=== PATIENT | female | born 1940 | race Caucasian/White ===

== ENCOUNTER 2020-11-06 13:09 | Emergency (ER) | payer MEDICARE ==
[~2020-11-06 13:09] MED LIST: ALL DAY ALLERGY10 M2 PO; ASPIRIN EC81 MG PO; ATORVASTATIN CA20 MG PO; CLARITIN 10MG T10 MG PO; CLOPIDOGREL75 MG PO; COD LIVER OIL1 EACH PO; CYMBALTA30 MG PO; DILTIAZEM 24HR180 M1 PO; DULOXETINE HCL30 MG PO; ELIQUIS2.5 MG PO; FLONASE 0.05% N16 GM; GABAPENTIN100 MG PO; LACTULOSE10 GM/151 PO; LACTULOSE10 GM/152 PO; LIDOCAINE PAIN1 EACH TP; LINZESS145 MCG PO; MEGACE 400400 MG/10 PO; MEGACE400 MG/10 PO; NEURONTIN 100100 MG PO; NORCO 5-325 TA1 EACH PO; OMNICEF 300 MG300 MG PO; OSTEO BI-FLEX1 EAC1 PO; PAIN RELIEVER650 MG PO; PLAQUENIL 200200 MG PO; RESTASIS 0.05%1 EACH OD; THERA-GESIC PLU85 GM TP; TRAMADOL-ACETA1 EACH PO; VITAMIN A8000 UNIT PO; VITAMIN D310 MC2 PO; VIVELLE-DOT1 EAC1 TD
[2020-11-06 15:19] LABS: HEMOGLOBIN 13.2 gm/dl (12.3-15.3); RED BLOOD COUNT 4.1 M/UL (4.00-5.10); WHITE BLOOD COUNT 7.2 K/UL (4.5-11.0)
[2020-11-06 15:45] LABS: BUN/CREATININE RATIO 66 (0-10)
== END 2020-11-06 17:12 | disposition home or self-care (01) ==
LOC: ER1 13:09
PROVIDERS: Emergency Medicine
DX: M47.816 Spondylosis without myelopathy or radiculopathy, lumbar region (principal); M79.605 Pain in left leg; M79.604 Pain in right leg; I10 Essential (primary) hypertension; Z88.0 Allergy status to penicillin; Z79.01 Long term (current) use of anticoagulants
CPT/HCPCS: 72131; 80053; 85025; 93970; 99284

== ENCOUNTER → 2021-01-24 | Outpatient (CLI) | payer MEDICARE ==
[~2021-01-24] MED LIST changes: +BACTRIM DS TAB1 EACH PO; +MIRALAX17 GM PO
== END ==
LOC: EMI 10:19
DX: M54.16 Radiculopathy, lumbar region (principal); M51.36 Other intervertebral disc degeneration, lumbar region
CPT/HCPCS: 72148

== ENCOUNTER 2021-02-01 15:45 | Emergency (ER) | payer MEDICARE ==
[~2021-02-01 15:45] MED LIST changes: -BACTRIM DS TAB1 EACH PO; -MIRALAX17 GM PO
[2021-02-01 18:28] LABS: HEMOGLOBIN 13.3 gm/dl (12.3-15.3); RED BLOOD COUNT 4.1 M/UL (4.00-5.10); WHITE BLOOD COUNT 5.6 K/UL (4.5-11.0)
[2021-02-01 18:40] LABS: BUN/CREATININE RATIO 50 (0-10)
== END 2021-02-01 20:20 | disposition home or self-care (01) ==
LOC: ER1 15:45
PROVIDERS: Preventive Medicine Occupational Medicine
DX: G89.29 Other chronic pain (principal); M54.9 Dorsalgia, unspecified; M79.606 Pain in leg, unspecified
CPT/HCPCS: 70450; 80053; 81001; 83690; 85025; 85652; 86140; 87086; 93005; 99284; J7030

== ENCOUNTER 2021-04-27 10:32 | Emergency (ER) | payer MEDICARE ==
[2021-04-27 13:53] LABS: HEMOGLOBIN 14.2 gm/dl (12.3-15.3); RED BLOOD COUNT 4.35 M/UL (4.00-5.10); WHITE BLOOD COUNT 6.7 K/UL (4.5-11.0)
[2021-04-27 14:12] LABS: BUN/CREATININE RATIO 68 (0-10)
[2021-04-27] MEDS ORDERED: BACTRIM DS TAB1 EACH PO (14:58)
[2021-04-27] MEDS ORDERED: MIRALAX17 GM PO (14:58)
== END 2021-04-27 15:30 | disposition home or self-care (01) ==
LOC: ER1 10:32
PROVIDERS: Physician Assistant Medical
DX: M79.651 Pain in right thigh (principal); M79.652 Pain in left thigh; M25.561 Pain in right knee; M25.562 Pain in left knee; G89.29 Other chronic pain; I10 Essential (primary) hypertension; N39.0 Urinary tract infection, site not specified; K59.00 Constipation, unspecified; Z86.73 Personal history of transient ischemic attack (TIA), and cerebral infarction without residual deficits; Z88.0 Allergy status to penicillin; Z79.899 Other long term (current) drug therapy
CPT/HCPCS: 74018; 80053; 81001; 85025; 99283

== ENCOUNTER → 2021-06-14 | Outpatient (CLI) | payer MEDICARE ==
[~2021-06-14] MED LIST changes: +BACTRIM DS TAB1 EACH PO; +MIRALAX17 GM PO
== END ==
LOC: CT 06-13 08:30
DX: M79.669 Pain in unspecified lower leg (principal); I73.00 Raynaud's syndrome without gangrene
CPT/HCPCS: 36415; 75635; 82565; Q9967

== ENCOUNTER → 2021-07-19 | Outpatient (CLI) | payer MEDICARE | LOC: KOH-I 11:32 | DX: G44.52 New daily persistent headache (NDPH) (principal); M51.36 Other intervertebral disc degeneration, lumbar region; M48.061 Spinal stenosis, lumbar region without neurogenic claudication; M41.9 Scoliosis, unspecified | CPT/HCPCS: 70551; 72148 ==

== ENCOUNTER 2021-08-04 09:46 | Emergency (ER) | payer MEDICARE ==
[2021-08-04 12:05] LABS: HEMOGLOBIN 14.2 gm/dl (12.3-15.3); RED BLOOD COUNT 4.34 M/UL (4.00-5.10); WHITE BLOOD COUNT 6.8 K/UL (4.5-11.0)
[2021-08-04 12:30] LABS: BUN/CREATININE RATIO 62 (0-10)
[2021-08-04] MEDS ORDERED: CIPRO250 MG PO (14:55)
[2021-08-04] MEDS ORDERED: METRONIDAZOLE500 MG PO (14:55)
[2021-08-04] MEDS ORDERED: ONDANSETRON ODT4 MG SL (14:55)
== END 2021-08-04 15:10 | disposition home or self-care (01) ==
LOC: ER1 09:46
PROVIDERS: Physician Assistant
DX: M70.71 Other bursitis of hip, right hip (principal); G89.29 Other chronic pain; D19.7 Benign neoplasm of mesothelial tissue of other sites; E78.5 Hyperlipidemia, unspecified; Z88.0 Allergy status to penicillin; Z91.048 Other nonmedicinal substance allergy status; Z79.899 Other long term (current) drug therapy
CPT/HCPCS: 71045; 80053; 81001; 82550; 82553; 83690; 83874; 84439; 84443; 84484; 85025; 93005; 99284; J2405; Q9967

== ENCOUNTER 2021-08-27 12:50 | Emergency (ER) | payer MEDICARE ==
[~2021-08-27 12:50] MED LIST changes: +CIPRO250 MG PO; +METRONIDAZOLE500 MG PO; +ONDANSETRON ODT4 MG SL
[2021-08-27 13:44] LABS: HEMOGLOBIN 13.4 gm/dl (12.3-15.3); RED BLOOD COUNT 4.1 M/UL (4.00-5.10); WHITE BLOOD COUNT 11.4 K/UL (4.5-11.0)
[2021-08-27 14:12] LABS: BUN/CREATININE RATIO 98 (0-10)
[2021-08-27] MEDS ORDERED: MIRALAX17 GM PO ×2 (17:48→17:56)
[2021-08-27] MEDS ORDERED: COLACE 100MG C100 MG PO ×2 (17:48→17:56)
== END 2021-08-27 18:10 | disposition home or self-care (01) ==
LOC: ER1 12:50
PROVIDERS: Nurse Practitioner
DX: K59.00 Constipation, unspecified (principal); E86.0 Dehydration; Z20.822 Contact with and (suspected) exposure to COVID-19; Z86.73 Personal history of transient ischemic attack (TIA), and cerebral infarction without residual deficits; I10 Essential (primary) hypertension; Z88.0 Allergy status to penicillin
CPT/HCPCS: 51701; 71045; 80053; 81001; 82550; 82553; 83605; 83874; 84484; 85025; 85610; 87040; 87086; 93005; 96374; 99285; J0692; J7030; Q9967; U0002

== ENCOUNTER 2021-10-02 08:49 | Emergency (ER) | payer MEDICARE ==
[~2021-10-02 08:49] MED LIST changes: +COLACE 100MG C100 MG PO
[2021-10-02 09:44] LABS: HEMOGLOBIN 13.5 gm/dl (12.3-15.3); RED BLOOD COUNT 4.14 M/UL (4.00-5.10); WHITE BLOOD COUNT 6.3 K/UL (4.5-11.0)
[2021-10-02 10:34] LABS: BUN/CREATININE RATIO 94 (0-10)
== END 2021-10-02 13:58 | disposition home or self-care (01) ==
LOC: ER1 08:49
PROVIDERS: Physician Assistant
DX: G91.9 Hydrocephalus, unspecified (principal); M79.605 Pain in left leg; M79.604 Pain in right leg; E86.0 Dehydration; Z20.822 Contact with and (suspected) exposure to COVID-19; G89.29 Other chronic pain; R00.0 Tachycardia, unspecified; I10 Essential (primary) hypertension; Z88.0 Allergy status to penicillin
CPT/HCPCS: 70450; 71045; 80053; 81001; 82550; 82553; 83605; 83874; 84484; 85025; 87040; 87086; 93005; 99284; J7030; U0002

== ENCOUNTER → 2021-11-25 | Outpatient (CLI) | payer MEDICARE | LOC: EXRD 11-20 10:30 | DX: M81.0 Age-related osteoporosis without current pathological fracture (principal) | CPT/HCPCS: 77080 ==

== ENCOUNTER 2022-01-21 12:17 | Emergency (ER) | payer MEDICARE ==
[2022-01-21 13:54] LABS: HEMOGLOBIN 13.3 gm/dl (12.3-15.3); RED BLOOD COUNT 4.04 M/UL (4.00-5.10); WHITE BLOOD COUNT 8.1 K/UL (4.5-11.0)
[2022-01-21 14:20] LABS: BUN/CREATININE RATIO 102 (0-10)
== END 2022-01-21 16:30 | disposition home or self-care (01) ==
LOC: ER1 12:17
PROVIDERS: Physician Assistant
DX: T54.91XA Toxic effect of unspecified corrosive substance, accidental (unintentional), initial encounter (principal); G91.9 Hydrocephalus, unspecified; F03.90 Unspecified dementia, unspecified severity, without behavioral disturbance, psychotic disturbance, mood disturbance, and anxiety
CPT/HCPCS: 70450; 71045; 80053; 81001; 82550; 82553; 83605; 84484; 85025; 87086; 93005; 99284

== ENCOUNTER 2022-02-11 14:58 | Inpatient (IN) | payer MEDICARE ==
[~2022-02-11] VITALS: Ht 157.5 cm; Wt 34.5 kg
[~2022-02-11 14:58] MED LIST changes: +BUTRANS1 EAC3 TD; +DULOXETINE HCL20 MG PO; -DULOXETINE HCL30 MG PO; +DULOXETINE HCL60 MG PO; +LYRICA50 MG PO
[2022-02-11 15:40] LABS: HEMOGLOBIN 12.9 gm/dl (12.3-15.3); RED BLOOD COUNT 3.77 M/UL (4.00-5.10); WHITE BLOOD COUNT 11.5 K/UL (4.5-11.0)
[2022-02-11 16:02] LABS: BUN/CREATININE RATIO 100 (0-10)
[2022-02-12 04:49] LABS: HEMOGLOBIN 12.8 gm/dl (12.3-15.3); RED BLOOD COUNT 3.75 M/UL (4.00-5.10)
[2022-02-12 04:56] LABS: WHITE BLOOD COUNT 17.6 K/UL (4.5-11.0)
[2022-02-12 05:27] LABS: BUN/CREATININE RATIO 52 (0-10)
[2022-02-12] MEDS ORDERED: DILTIAZEM 24HR180 M1 PO (10:31)
[2022-02-12] MEDS ORDERED: CELECOXIB100 MG PO (12:45)
[2022-02-12] MEDS ORDERED: PROZAC10 MG PO (12:46)
[2022-02-12] MEDS ORDERED: HYDROCODON-ACE1 EAC4 PO (12:47)
[2022-02-12] MEDS ORDERED: ROPINIROLE HCL0.5 MG PO (12:48)
[2022-02-12] MEDS ORDERED: CILOSTAZOL50 MG PO (12:49)
[2022-02-12] MEDS ORDERED: LIPITOR40 MG PO (19:54)
[2022-02-12] MEDS ORDERED: TYLENOL 8 HOUR650 MG PO (19:57)
[2022-02-12] MEDS ORDERED: ALEVE220 MG PO (19:58)
[2022-02-13 03:06] LABS: HEMOGLOBIN 12.3 gm/dl (12.3-15.3); RED BLOOD COUNT 3.62 M/UL (4.00-5.10); WHITE BLOOD COUNT 15.1 K/UL (4.5-11.0)
[2022-02-13 04:26] LABS: BUN/CREATININE RATIO 43 (0-10)
[2022-02-14 02:50] LABS: RED BLOOD COUNT 3.85 M/UL (4.00-5.10)
[2022-02-14 03:01] LABS: BUN/CREATININE RATIO 33 (0-10)
[2022-02-14 03:32] LABS: WHITE BLOOD COUNT 9.5 K/UL (4.5-11.0)
[2022-02-15] MEDS ORDERED: CEFUROXIME250 MG PO (09:16)
[2022-02-15] MEDS ORDERED: POLYETHYLENE GL17 GM PO (11:10)
[2022-02-15] MEDS ORDERED: STIMULANT LAXA1 EACH PO (11:10)
--- NOTE | 2022-02-15 11:18 | NUR ---
RN SPOKE WITH HEAT T[employer]ATING FURNACE TENDER YAZMIN Rice ABOUT HOME HEALTH FOR THIS PATIENT. YAZMIN STATED HOME HEALTH WAS SET UP WITH [facility] AND STATED NUMBER FOR REPORT WAS [phone].
--- NOTE | 2022-02-15 11:51 | NUR ---
RN ATTEMPTED TO CALL A HOME HEALTH ABOUT PATIENT'S REFERRAL TO HOME HEALTH WITH NO SUCCESS. CASE MANAGEMENT NOTE SAID INFORMATION WAS SENT. FAMILY INSTRUCTED TO CALL HOSPITAL IF HOME HEALTH SETUP ISSUES [place].
== END 2022-02-15 12:13 | disposition home health service (06) | DRG 689 ==
LOC: ER1 14:58 → M/S 18:30 → CDU 18:30 → M/S 02-12 08:55
PROVIDERS: Emergency Medicine; Physician Assistant; ADMIT Internal Medicine Infectious Disease
DX: N30.00 Acute cystitis without hematuria (principal); G93.41 Metabolic encephalopathy; F11.20 Opioid dependence, uncomplicated; Z68.1 Body mass index [BMI] 19.9 or less, adult; N17.9 Acute kidney failure, unspecified; E44.0 Moderate protein-calorie malnutrition; E86.0 Dehydration; M54.9 Dorsalgia, unspecified; K81.9 Cholecystitis, unspecified; G89.29 Other chronic pain; K59.00 Constipation, unspecified; M41.9 Scoliosis, unspecified; I10 Essential (primary) hypertension; Z20.822 Contact with and (suspected) exposure to COVID-19; Z96.649 Presence of unspecified artificial hip joint; M51.34 Other intervertebral disc degeneration, thoracic region; Z87.442 Personal history of urinary calculi; Z86.73 Personal history of transient ischemic attack (TIA), and cerebral infarction without residual deficits; Z98.890 Other specified postprocedural states; Z90.710 Acquired absence of both cervix and uterus; Z82.49 Family history of ischemic heart disease and other diseases of the circulatory system; Z82.3 Family history of stroke; Z91.040 Latex allergy status; Z88.0 Allergy status to penicillin; Z79.899 Other long term (current) drug therapy
CPT/HCPCS: 36415; 80048; 80053; 81001; 82550; 82553; 83690; 83735; 84484; 85025; 87086; 93005; 96374; 96375; 97110-GP-CQ; 97161; 97166; 99285; C9113; G0378; J1335; J2405; Q9967; U0002

== ENCOUNTER 2022-02-20 10:22 | Emergency (ER) | payer MEDICARE ==
[~2022-02-20 10:22] MED LIST changes: +ALEVE220 MG PO; +CEFUROXIME250 MG PO; +CELECOXIB100 MG PO; +CILOSTAZOL50 MG PO; +HYDROCODON-ACE1 EAC4 PO; +LIPITOR40 MG PO; +POLYETHYLENE GL17 GM PO; +PROZAC10 MG PO; +ROPINIROLE HCL0.5 MG PO; +STIMULANT LAXA1 EACH PO; +TYLENOL 8 HOUR650 MG PO
[2022-02-20 11:02] LABS: HEMOGLOBIN 13.1 gm/dl (12.3-15.3); RED BLOOD COUNT 3.9 M/UL (4.00-5.10); WHITE BLOOD COUNT 6.3 K/UL (4.5-11.0)
[2022-02-20 11:25] LABS: BUN/CREATININE RATIO 86 (0-10)
== END 2022-02-20 14:50 | disposition home or self-care (01) ==
LOC: ER1 10:22
PROVIDERS: Student in an Organized Health Care Education/Training Program
DX: G89.29 Other chronic pain (principal); M79.605 Pain in left leg; I10 Essential (primary) hypertension; Z88.0 Allergy status to penicillin
CPT/HCPCS: 80053; 82550; 82553; 83605; 84484; 85025; 96374; 99283; J1885; J7030

== ENCOUNTER → 2022-03-05 | Outpatient (CLI) | payer MEDICARE ==
[~2022-03-05] VITALS: Ht 154.9 cm; Wt 34.9 kg
== END ==
LOC: OPSV 15:00
DX: M81.0 Age-related osteoporosis without current pathological fracture (principal)
CPT/HCPCS: 96372

== ENCOUNTER 2022-03-23 08:08 | Emergency (ER) | payer MEDICARE ==
[2022-03-23 09:39] LABS: HEMOGLOBIN 12.4 gm/dl (12.3-15.3); RED BLOOD COUNT 3.79 M/UL (4.00-5.10); WHITE BLOOD COUNT 6.2 K/UL (4.5-11.0)
[2022-03-23 10:02] LABS: BUN/CREATININE RATIO 73 (0-10)
== END 2022-03-23 12:30 | disposition home or self-care (01) ==
LOC: ER1 08:08
PROVIDERS: Physician Assistant
DX: M25.551 Pain in right hip (principal); M25.552 Pain in left hip; G89.29 Other chronic pain; Z96.641 Presence of right artificial hip joint; Z88.0 Allergy status to penicillin
CPT/HCPCS: 73522; 80053; 83605; 85025; 85652; 86140; 99284

== ENCOUNTER 2022-04-19 07:06 | Observation (INO) | payer MEDICARE ==
[~2022-04-19] VITALS: Ht 157.5 cm; Wt 36.3 kg
[~2022-04-19 07:06] MED LIST changes: +DILTIAZEM 24HR240 M1 PO; -PROZAC10 MG PO; +PROZAC20 MG PO
[2022-04-19 08:07] LABS: HEMOGLOBIN 13.4 gm/dl (12.3-15.3); RED BLOOD COUNT 4.13 M/UL (4.00-5.10); WHITE BLOOD COUNT 10.2 K/UL (4.5-11.0)
[2022-04-19 08:31] LABS: BUN/CREATININE RATIO 83 (0-10)
[2022-04-19] MEDS ORDERED: BUSPIRONE HCL5 MG PO (15:22)
[2022-04-19] MEDS ORDERED: PERCOCET 5-3251 EACH PO (15:23)
[2022-04-20 03:12] LABS: HEMOGLOBIN 14.2 gm/dl (12.3-15.3); RED BLOOD COUNT 4.33 M/UL (4.00-5.10); WHITE BLOOD COUNT 8.8 K/UL (4.5-11.0)
[2022-04-20 03:36] LABS: BUN/CREATININE RATIO 47 (0-10)
[2022-04-21 03:33] LABS: HEMOGLOBIN 13.5 gm/dl (12.3-15.3); RED BLOOD COUNT 4.31 M/UL (4.00-5.10); WHITE BLOOD COUNT 7.1 K/UL (4.5-11.0)
[2022-04-21 03:47] LABS: BUN/CREATININE RATIO 59 (0-10)
[2022-04-22 04:23] LABS: HEMOGLOBIN 12.3 gm/dl (12.3-15.3); WHITE BLOOD COUNT 7.1 K/UL (4.5-11.0)
[2022-04-22 04:27] LABS: RED BLOOD COUNT 3.78 M/UL (4.00-5.10)
[2022-04-22 04:49] LABS: BUN/CREATININE RATIO 44 (0-10)
[2022-04-22] MEDS ORDERED: CEFUROXIME250 MG PO (10:39)
== END 2022-04-22 13:56 | disposition home health service (06) ==
LOC: ER1 07:06 → M/S 14:52 → CDU 14:52 → M/S 14:52
PROVIDERS: Nurse Practitioner; Physician Assistant; ADMIT Internal Medicine
DX: R55 Syncope and collapse (principal); N30.00 Acute cystitis without hematuria; R22.1 Localized swelling, mass and lump, neck; J45.909 Unspecified asthma, uncomplicated; M48.54XA Collapsed vertebra, not elsewhere classified, thoracic region, initial encounter for fracture; R64 Cachexia; M54.9 Dorsalgia, unspecified; G89.29 Other chronic pain; I10 Essential (primary) hypertension; Z88.0 Allergy status to penicillin; Z79.899 Other long term (current) drug therapy
CPT/HCPCS: 36415; 70450; 71045; 72125; 72141; 80048; 80053; 80307; 81001; 82550; 82553; 83690; 83735; 83874; 84100; 84484; 85025; 85027; 87040; 87077; 87086; 87186; 93005; 96374; 96376; 97116-GP-CQ; 97161; 97165; 97535; 99285; G0378; J0696

== ENCOUNTER 2022-04-27 07:52 | Emergency (ER) | payer MEDICARE ==
[~2022-04-27 07:52] MED LIST changes: +BUSPIRONE HCL5 MG PO; +PERCOCET 5-3251 EACH PO
[2022-04-27 08:42] LABS: HEMOGLOBIN 13.2 gm/dl (12.3-15.3); RED BLOOD COUNT 4.09 M/UL (4.00-5.10); WHITE BLOOD COUNT 9.3 K/UL (4.5-11.0)
[2022-04-27 09:06] LABS: BUN/CREATININE RATIO 104 (0-10)
[2022-04-27] MEDS ORDERED: PROTONIX 40 MG40 M1 PO (12:32)
== END 2022-04-27 12:45 | disposition home or self-care (01) ==
LOC: ER1 07:52
PROVIDERS: Family Medicine
DX: R10.9 Unspecified abdominal pain (principal); G89.29 Other chronic pain; N18.9 Chronic kidney disease, unspecified; Z88.0 Allergy status to penicillin
CPT/HCPCS: 80053; 81001; 83605; 83690; 85025; 93005; 99284; Q9967

== ENCOUNTER 2022-06-25 05:27 | Observation (INO) | payer MEDICARE ==
[~2022-06-25] VITALS: Ht 157.5 cm; Wt 39.9 kg
[~2022-06-25 05:27] MED LIST changes: +LYRICA25 MG PO; -LYRICA50 MG PO; +PROTONIX 40 MG40 M1 PO
[2022-06-25] MEDS ORDERED: MACROBID 100 M100 MG PO (06:29)
[2022-06-25] MEDS ORDERED: MOVANTIK25 MG PO (06:29)
[2022-06-25 06:35] LABS: HEMOGLOBIN 12.1 gm/dl (12.3-15.3); RED BLOOD COUNT 3.79 M/UL (4.00-5.10); WHITE BLOOD COUNT 6.4 K/UL (4.5-11.0)
[2022-06-25] MEDS ORDERED: METOPROLOL SUCC50 MG PO (06:37)
[2022-06-25 07:24] LABS: BUN/CREATININE RATIO 130 (0-10)
[2022-06-25] MEDS ORDERED: BACTRIM DS TAB1 EACH PO (16:56)
[2022-06-26 04:08] LABS: HEMOGLOBIN 12.1 gm/dl (12.3-15.3); RED BLOOD COUNT 3.81 M/UL (4.00-5.10)
[2022-06-26 04:11] LABS: WHITE BLOOD COUNT 9.2 K/UL (4.5-11.0)
[2022-06-26 04:41] LABS: BUN/CREATININE RATIO 43 (0-10)
== END 2022-06-26 14:42 | disposition home or self-care (01) ==
LOC: OR 05:27 → CCU 14:21
PROVIDERS: Anesthesiology Pain Medicine; Physician Assistant Medical; ADMIT Internal Medicine
DX: M48.00 Spinal stenosis, site unspecified (principal); G89.29 Other chronic pain; M79.662 Pain in left lower leg; M79.661 Pain in right lower leg; R06.89 Other abnormalities of breathing; I10 Essential (primary) hypertension; M41.9 Scoliosis, unspecified; E78.5 Hyperlipidemia, unspecified; Z86.73 Personal history of transient ischemic attack (TIA), and cerebral infarction without residual deficits; E55.9 Vitamin D deficiency, unspecified; M35.00 Sjogren syndrome, unspecified; G62.9 Polyneuropathy, unspecified; M19.90 Unspecified osteoarthritis, unspecified site; F41.9 Anxiety disorder, unspecified; F32.A Depression, unspecified; Z88.0 Allergy status to penicillin; Z79.899 Other long term (current) drug therapy
CPT/HCPCS: 36415; 36600; 71045; 72020; 76000; 80048; 81001; 82803; 83735; 85025; 85027; 93005; 94002; 96374; 96376; 97162; 97165; 97530; C1778; C1787; C1820; G0378; J1100; J1170; J2001; J2270; J2310; J2405; J2704; J3010

== ENCOUNTER → 2022-07-09 | Outpatient (CLI) | payer MEDICARE ==
[~2022-07-09] MED LIST changes: +MACROBID 100 M100 MG PO; +METOPROLOL SUCC50 MG PO; +MOVANTIK25 MG PO
[2022-07-09 17:28] LABS: HEMOGLOBIN 11.7 gm/dl (12.3-15.3); RED BLOOD COUNT 3.7 M/UL (4.00-5.10); WHITE BLOOD COUNT 9.8 K/UL (4.5-11.0)
== END ==
LOC: LAB 16:40
PROVIDERS: Anesthesiology Pain Medicine
DX: Z53.9 Procedure and treatment not carried out, unspecified reason (principal)
CPT/HCPCS: 36415; 85027

== ENCOUNTER 2022-07-11 06:48 | Emergency (ER) | payer MEDICARE ==
[2022-07-11 07:51] LABS: HEMOGLOBIN 11.8 gm/dl (12.3-15.3); RED BLOOD COUNT 3.81 M/UL (4.00-5.10); WHITE BLOOD COUNT 6.8 K/UL (4.5-11.0)
[2022-07-11 08:19] LABS: BUN/CREATININE RATIO 84 (0-10)
== END 2022-07-11 12:21 | disposition home or self-care (01) ==
LOC: ER1 06:48
PROVIDERS: Physician Assistant
DX: M54.16 Radiculopathy, lumbar region (principal); G89.29 Other chronic pain; Z88.0 Allergy status to penicillin; Z87.891 Personal history of nicotine dependence; Z20.822 Contact with and (suspected) exposure to COVID-19
CPT/HCPCS: 70450; 71045; 72125; 72132; 80053; 81001; 82550; 82553; 83605; 84439; 84443; 84484; 85025; 85652; 87086; 99284; Q9967; U0002

== ENCOUNTER 2022-07-14 10:46 | Emergency (ER) | payer MEDICARE ==
[2022-07-14 17:19] LABS: HEMOGLOBIN 11.8 gm/dl (12.3-15.3); RED BLOOD COUNT 3.74 M/UL (4.00-5.10); WHITE BLOOD COUNT 6.8 K/UL (4.5-11.0)
[2022-07-14 17:49] LABS: BUN/CREATININE RATIO 71 (0-10)
== END 2022-07-14 20:55 | disposition home or self-care (01) ==
LOC: ER1 10:46
PROVIDERS: Physician Assistant
DX: E86.0 Dehydration (principal); E78.5 Hyperlipidemia, unspecified; I10 Essential (primary) hypertension; G62.9 Polyneuropathy, unspecified; Z86.73 Personal history of transient ischemic attack (TIA), and cerebral infarction without residual deficits
CPT/HCPCS: 80053; 81001; 85025; 99283; J7040

== ENCOUNTER 2022-07-17 11:03 | Emergency (ER) | payer MEDICARE | END 2022-07-17 12:41 | disposition left against medical advice (07) | LOC: ER1 11:03 | DX: Z53.21 Procedure and treatment not carried out due to patient leaving prior to being seen by health care provider (principal) ==